=== PATIENT | female | born 1960 | race Caucasian/White ===

== ENCOUNTER 2025-01-31 21:40 | Observation (INO) ==
--- NOTE | 2025-01-31 21:56 | Emergency Department Note ---
HPI - SOB/Dyspnea General Chief Complaint: Upper Respiratory Infection Stated Complaint: TROUBLE BREATHING,CHEST PAIN Time Seen by Provider: 01/31/25 21:46 Source: patient Mode of arrival: walk-in Limitations: no limitations History of Present Illness HPI Narrative: 64-year-old female presents to ER with complaint of 1 week onset of shortness of breath, cough, body aches that has increased in intensity throughout the week. MD elicited complaint: Reports shortness of breath and cough Pertinent past history: Reports COPD and pneumonia Onset (ago): week(s) (1) Context: Reports recent illness and anxiety Timing: Reports constant and progressively worsening Severity: moderate Exacerbating factors: Reports lying flat, exertion, coughing, warm air, humidity, smoke and deep breaths Relieving factors: Reports oxygen, bronchodilators, upright position, medication and cool air Known history of: Reports COPD Associated symptoms: Reports pain with inspiration, cough, orthopnea and chest congestion Treatment prior to arrival: Reports oxygen and bronchodilator Related Data Home oxygen amount: as needed at night Home Medications Medication Instructions Recorded Confirmed atorvastatin 20 mg tablet 20 mg PO DAILY 05/09/24 05/09/24 azelastine 137 mcg (0.1 %) nasal 137 mcg intranasal DAILY 05/09/24 05/09/24 spray buspirone 10 mg tablet 10 mg PO TID 05/09/24 05/09/24 citalopram 40 mg tablet 40 mg PO DAILY 05/09/24 05/09/24 donepezil 23 mg tablet 23 mg PO DAILY 05/09/24 05/09/24 escitalopram oxalate 20 mg tablet 20 mg PO DAILY 05/09/24 05/09/24 fluticasone propionate 115 2 puff inhalation DAILY 05/09/24 05/09/24 mcg-salmeterol 21 mcg/actuation HFA inhaler (Advair HFA) lamotrigine 25 mg tablet 25 mg PO DAILY 05/09/24 05/09/24 lisinopril 5 mg tablet 5 mg PO DAILY 05/09/24 05/09/24 meloxicam 15 mg tablet 15 mg PO DAILY 05/09/24 05/09/24 memantine 10 mg tablet 10 mg PO DAILY 05/09/24 05/09/24 montelukast 10 mg tablet 10 mg PO DAILY 05/09/24 05/09/24 omeprazole 40 mg capsule,delayed 40 mg PO DAILY 05/09/24 05/09/24 release oxcarbazepine 150 mg tablet 150 mg PO DAILY 05/09/24 05/09/24 oxycodone-acetaminophen 10 mg-325 1 tab PO TID 05/09/24 05/09/24 mg tablet potassium chloride 10 mEq 10 meq PO DAILY 05/09/24 05/09/24 tablet,extended release(part/cryst) pregabalin 100 mg capsule 100 mg PO Q12H 05/09/24 05/09/24 quetiapine 100 mg tablet 100 mg PO BID 05/09/24 05/09/24 ranolazine 500 mg tablet,extended 500 mg PO BID 05/09/24 05/09/24 release,12 hr ropinirole 0.25 mg tablet 0.25 mg PO BID 05/09/24 05/09/24 sertraline 50 mg tablet 50 mg PO DAILY 05/09/24 05/09/24 venlafaxine 150 mg 150 mg PO DAILY 05/09/24 05/09/24 capsule,extended release 24 hr Previous Rx's Medication Instructions Recorded ciprofloxacin HCl 500 mg tablet 500 mg PO BID UTI #10 tabs 05/09/24 (Cipro) Allergies Allergy/AdvReac Type Severity Reaction Status Date / Time No Known Drug Allergies Allergy Verified 01/31/25 22:01 Review of Systems Status of ROS 10 or more systems reviewed and unremark able except as noted in history and below Constitutional Reports: fatigue; Denies: fever, chills, change in weight, malaise, night sweats or change in sleep pattern Eyes Denies: change in vision, blurry vision, blind spots, light sensitivity, eye discomfort, eye discharge, dry eyes, increased production of tears, floaters, seeing flashes or decreased night vision Ears, nose, mouth, and throat Reports: nasal congestion; Denies: throat pain, neck pain, throat swelling, difficulty swallowing, hoarseness, mouth pain, swelling of lips/tongue, dry mouth, bad breath, ear pain, ear discharge, change in hearing, tinnitus, vertigo, nasal discharge, nose bleeds or post nasal drip Cardiovascular Reports: swelling of feet/ankles, shortness of breath with exertion and shortness of breath when lying down; Denies: chest pain, palpitations, edema, lightheadedness, leg pain with exertion or bluish discoloration of hands/feet Respiratory Reports: shortness of breath, cough, wheezing and chest congestion; Denies: stridor, pain on inspiration, change in phlegm color or coughing up blood Gastrointestinal Denies: abdominal pain, nausea, vomiting, coffee grounds in vomit, heartburn, diarrhea, constipation, bloating, belching, excessive passing of gas, difficulty swallowing, feeling full early, change in bowel habits, painful bowel movements, rectal pain, rectal swelling, rectal itching, change in stool character, blood in stool, mucus in stool, white/light colored stool or fatty stool Genitourinary Denies: painful urination, urinary frequency, urinary urgency, urinary incontinence, blood in urine, difficulty voiding, decreased urine ouput, pelvic pain, painful menstruation, vaginal bleeding, vaginal discharge, irregular period, change in menstrual flow, absence of menstruation, genital lesion, genital itching, vaginal dryness, vaginal odor, pain during intercourse, difficulty conceiving or change in libido Musculoskeletal Denies: back pain, neck pain, extremity pain, extremity swelling, joint pain, limited range of motion, joint swelling, muscle cramps, muscle weakness or loss of height Integumentary/Breast Denies: rash, itching, redness, skin pain, skin tenderness, skin swelling, sores, new lesion, changing lesion, non-healing lesion, changes in skin color, jaundice, stretch reyes, acne, nail changes, change in hair, breast pain, breast swelling, nipple discharge, breast mass, breast skin changes or change in breast shape Neurological Denies: headache, numbness in extremities, weakness in extremities, lack of coordination, dizziness, vertigo, confusion, behavioral changes, slurred speech, difficulty communicating thoughts, seizure-like activity or involuntary movements Psychiatric Reports: anxiety; Denies: mood swings, panic attacks, change in sleep pattern, hopelessness, loss of interest, irritability, paranoia, memory loss, difficulty concentrating, visual hallucinations, auditory hallucinations, tactile hallucinations, suicidal ideation or homicidal ideation Endocrine Reports: fatigue; Denies: excessive urination, excessive thirst, cold intolerance, excessive sweating, flushing, heat intolerance, deepening of the voice, change in body appearance or change in libido Hematologic/Lymphatic Denies: easy bruising, easy bleeding or enlarged lymph nodes Allergic/Immunologic Reports: wheezing; Denies: hives, throat swelling, tongue swelling, facial swelling, itchy eyes, seasonal allergies or food intolerance [facility] Medical History (Updated 01/31/25 @ 22:33 by Jessica Byrd RN) COPD (chronic obstructive pulmonary disease) Surgical History (Updated 01/31/25 @ 22:34 by Jessica Byrd RN) History of back surgery Hx of cholecystectomy H/O heart artery stent Social History Smoking status: current every day smoker Problems where you live: no known problems Feel stressed/tense/nervous/anxious/difficulty sleeping: not at all Life stressors: other Life stressor details: n/a Exam Constitutional: normal general appearance, distress noted (moderate) and (respiratory), average body habitus, no limitations and alert Vital Signs - 24 hr 01/31/25 21:57 01/31/25 22:24 Temperature 99.2 F Pulse Rate 100 H Respiratory Rate 24 Blood Pressure 117/84 Pulse Oximetry 90 L 85 L Oxygen Delivery Me thod Room Air HENMT: normocephalic, head/scalp atraumatic, hearing grossly normal bilaterally, external ears normal, EACs normal, nasal mucous membranes normal, external nose normal, oral mucous membranes normal, oropharynx normal, dentition normal and gingiva normal Eyes: PERRL, EOMs intact bilaterally, conjunctivae normal, no scleral icterus, no papilledema, normal visual garcía by confrontation, fundi normal bilaterally, alignment normal, periorbital findings normal, visual acuity normal and no nystagmus Neck/C-Spine: visual inspection normal, trachea midline, cervical spine nontender, cervical full ROM noted, supple, no meningeal signs, thyroid normal and no carotid bruits Lymph: no lymphadenopathy noted and no lymphedema noted Chest: inspection of chest normal, inspection of breast(s) abnormal and palpation of breast(s) abnormal Respiratory: breath sounds equal bilaterally, abnormal respiratory effort (pursed lip breathing) and (labored), auscultation abnormal (diminished breath sound) (Left lower lobe), no wheezes, no rales, no retractions and no use of acc essory muscles Patient is a current everyday smoker and has noted pursed lip breathing with diminished breath sounds on the left lower lobe and Rhonchi breath sounds diffusely. Cardiovascular: normal heart rate noted, regular rhythm noted, no gallop, no rub, no murmur, no JVD, no clicks, peripheral pulses 2+ throughout and no additional abnormal heart sounds Gastrointestinal: abdomen normal to inspection, abdomen soft to palpation, nontender to palpation, nondistended, normoactive bowel sounds, no hepatos plenomegaly, no masses, no pulsatile mass, no ascites and normal rectal exam (deferred) Genitourinary: no CVA tenderness, bladder normal to palpation, vaginal abnormality noted (deferred), cervical abnormality noted, bimanual exam abnormal and inguinal lymphadenopathy noted Back/Pelvis: spine normal to inspection, no thoracic spine tenderness, no lumbar spine tenderness, thoracic spine ROM normal, lumbar spine ROM normal and no paraspinal muscle tenderness noted Extremities: normal to inspection, normal to palpation, no tenderness, full ROM, no joint enlargement and no deformity Neurology: application trainer II-XII intact, no movement abnormality noted, no focal motor deficit noted, no sensory deficits noted, gait normal, speech normal, coordination normal, no pronator drift noted, no fasciculations noted and GCS normal Psychiatry: Mental Status Exam documented within this Exam's Psych section mental status grossly normal, oriented x3, thought process normal, cooperative, affect normal, psychomotor activity normal and memory normal Feel stressed/tense/nervous/anxious/difficulty sleeping: not at all Life stressor details: n/a Skin: skin color normal, no rash, no lesions, no ecchymosis noted, no wounds, no lacerations, skin turgor normal, no jaundice, no petechiae, no mottling, nails normal and no alopecia Course Course Hospital Course: 64-year-old female that presented to the ER with complaint of shortness of breath, fever, body aches, general malaise x 1 week has been evaluated by physi aylin exam, CBC, CMP, urinalysis, swabs for COVID and flu, EKG, plain film chest x-ray, and ABG with results as noted in charting. Patient has been found to have hypoxia by ABG, leukocytosis, dehydration, acute kidney injury, pneumonia, and generalized weakness. Patient did show minor improvement with administration of DuoNeb and Pulmicort nebulized breathing treatments. Patient will be admitted to the [facility] floor for observation status to receive IV antibiotics, continued respiratory therapy, and hydration as necessary. Patient expected disposition is to home upon discharge. Vital Signs Vital signs: Vital Signs Temperature 99.2 F 01/31/25 21:57 Pulse Rate 100 H 01/31/25 21:57 Respiratory Rate 24 01/31/25 21:57 Blood Pressure 117/84 01/31/25 21:57 Pulse Oximetry 90 L 01/31/25 21:57 Oxygen Delivery Method Room Air 01/31/25 21:57 Temperature 99.2 F 01/31/25 21:57 Pulse Rate 100 H 01/31/25 21:57 Respiratory Rate 24 01/31/25 21:57 Blood Pressure 117/84 01/31/25 21:57 Pulse Oximetry 85 L 01/31/25 22:24 Oxygen Delivery Method Room Air 01/31/25 21:57 MDM - SOB/Dyspnea MDM Narrative Medical decision making narrative: Medical decision making for this patient involved physical exam, CBC, CMP, urinalysis, ABG, EKG, plain film chest x-ray, swab for flu, COVID, and response to medications. Differential Diagnosis Differential diagnosis: Likely acute exacerbation of chronic obstructive airways disease, community acquired pneumonia, pulmonary embolism and other (COVID, influenza) Lab Data Attestation: I reviewed the patient's lab results. Labs: Lab Results 01/31/25 01/31/25 01/31/25 Range/Units 21:56 21:56 22:15 WBC 15.5 H (4.3-9.3) K/uL RBC 3.3 L (4.00-5.50) M/uL Hgb 9.7 L (12.5-15.8) gm/dL Hct 29.3 L (35.9-46.7) % MCV 87.8 (81.0-93.7) fl MCH 29.0 (27.6-32.2) pg MCHC 33.0 L (33.1-35.3) g/dl RDW 15.4 H (11.4-14.2) % Plt Count 226 (152-353) K/uL MPV 7.0 (6.9-10.8) fl Gran % 91.1 H (47.8-71.3) % Lymph % (Auto) 2.7 L (20.0-43.0) % [place] % (Auto) 5.5 (3.6-9.8) % Eos % (Auto) 0.5 (0.4-2.8) % Baso % (Auto) 0.2 (0.1-0.85) Lymph # (Auto) 0.4 L (1.1-3.1) [place] # (Auto) 0.9 L (1.1-3.1) Eos # (Auto) 0.1 (0.0-0.2) Baso # (Auto) 0.0 (0.0-0.1) Absolute Gran (auto) 14.2 H (2.3-6.0) ABG pH 7.42 (7.35-7.45) ABG pCO2 40 (35-45) mmHg ABG pO2 44 L* 100 (60-100) mmHg ABG PO2/FiO2 Ratio 0.44 ABG HCO3 25.9 (22-26) mmo1/L ABG Total CO2 27.1 mmo1/L ABG O2 Saturation 81 L* (92-100) % ABG Base Excess 1.3 (-2-2) mmo1/L A-a O2 Gradient 56 mmHg Respiratory Index 1.3 H (0-1) FiO2 21 % Sodium 138 (136-145) mmol/L Potassium 3.6 (3.6-5.2) mmol/L Chloride 103.0 (98-107) mmol/L Carbon Dioxide 29 (21-32) mmol/L Anion Gap 6.0 (4-14) mEq/L BUN 25 H (7-18) mg/dL Creatinine 1.6 H (0.6-1.3) mg/dL Estimated GFR 35.8 (>59.9) Glucose 136 H (70-110) mg/dL Calcium 8.2 L (8.5-10.1) mg/dL Magnesium 1.9 (1.8-2.4) mg/dL Total Bilirubin 0.45 (0.0-1.0) mg/dL AST 19 (15-37) U/L ALT 18 L (30-65) U/L Alkaline Phosphatase 102 (50-136) U/L Total Protein 7.1 (6.4-8.2) g/dL Albumin 3.0 L (3.4-5.0) g/dL COVID-19 (NOAH) Not detected (Not Detectd) Influenza Type A Ag Negative (Negative) Influenza Type B Ag Negative (Negative) ABG Data ABG results: See results above Attestation: I have reviewed the pertinent ABG results. Imaging Data Imaging ordered: Chest x-ray My impression: Left lower lobe pneumonia ECG Data Attestation: I have reviewed the pertinent ECG results. Interpretation: Sinus rhythm rate 98 Normal P axis RR 612 [place] 116 P axis 68 QRS 66 T 53 Smoking Cessation Time spent discussing smoking cessation with patient: 3 to 10 minutes Patient Acknowledges Need for Cessation: Yes Discharge Plan Discharge Patient Disposition: Admitted As Observation Condition: Stable Clinical Impression: Pneumonia, Upper respiratory infection, Leukocytosis, Dehydration, Acute kidney injury Time of Disposition: 23:15
[2025-01-31] MEDS: IPRATROPIUM/ALBUTEROL SULFATE 3 ML AMPUL.NEB INH ONE (22:24)
[2025-01-31] MEDS: BUDESONIDE 0.5 MG/2 ML AMPUL.NEB INH ONE (22:24)
[2025-01-31 22:30] LABS: PCO2 ABG 40 mmHg (35-45); pH ABG 7.42 (7.35-7.45)
[2025-01-31 22:31] LABS: Base Excess ABG 1.3 mmo1/L (-2-2); PO2 ABG 44 mmHg (60-100)
[2025-01-31 22:32] LABS: Oxygen Saturation ABG 81 % (92-100)
[2025-01-31 22:35] LABS: Basophils%(Percent) Auto 0.2 (0.1-0.85); Eosinophils#(Absolute)Auto 0.1 (0.0-0.2); Eosinophils%(Percent) Auto 0.5 % (0.4-2.8); Granulocytes % - Auto 91.1 % (47.8-71.3); Granulocytes#(Absolute)- Auto 14.2 (2.3-6.0); Hematocrit 29.3 % (35.9-46.7); Mean Corpuscular Volume 87.8 fl (81.0-93.7); Monocytes #(Absolute)- Auto 0.9 (1.1-3.1); Monocytes %(Percent)- Auto 5.5 % (3.6-9.8); Platelet Count 226 K/uL (152-353); White Blood Count 15.5 K/uL (4.3-9.3)
[2025-01-31 22:51] LABS: Potassium 3.6 mmol/L (3.6-5.2)
[2025-02-01] MEDS ORDERED: ONDANSETRON HCL/PF 4 MG/2 ML VIAL INJ PRN (00:42)
[2025-02-01] MEDS ORDERED: KETOROLAC 30 MG/ML INJ VIAL IVP PRN (00:42)
[2025-02-01] MEDS ORDERED: MORPHINE SULFATE 2 MG/ML CARTRIDGE IV PRN (00:42)
[2025-02-01] MEDS ORDERED: bisacodyL 10 MG SUPP.RECT PR PRN (00:42)
[2025-02-01] MEDS ORDERED: MAGNESIUM, ALUMINUM HYDROXIDE 30 ML ORAL.SUSP PO PRN (00:42)
[2025-02-01] MEDS ORDERED: AZITHROMYCIN 500 MG VIAL ONE (00:52)
[2025-02-01] MEDS ORDERED: 0.9 % SODIUM CHLORIDE 250 ML IV ONE (00:52)
[2025-02-01] MEDS: AZITHROMYCIN 500 MG 500 MG in 0.9 % SODIUM CHLORIDE 250 ML IV ONE (00:53)
[2025-02-01] MEDS: IPRATROPIUM/ALBUTEROL SULFATE 3 ML AMPUL.NEB INH SCH (01:20)
[2025-02-01] MEDS: 0.9 % SODIUM CHLORIDE 1000 ML 1,000 ML IV SCH (02:44)
[2025-02-01] MEDS: CEFTRIAXONE SODIUM 1 GM in 0.9 % SODIUM CHLORIDE MB+ 50 ML IV SCH ×2 (02:44→12:52)
[2025-02-01 05:28] LABS: Urine Appearance CLEAR (CLEAR); Urine Blood NEGATIVE (NEG - TRACE); Urine Color YELLOW (STRAW/YELL.); Urine Urobilinogen Normal (NORMAL)
[2025-02-01 05:35] LABS: Basophils%(Percent) Auto 0.2 (0.1-0.85); Granulocytes % - Auto 96.5 % (47.8-71.3); Granulocytes#(Absolute)- Auto 14.4 (2.3-6.0); Hematocrit 26.3 % (35.9-46.7); Mean Corpuscular Volume 87.6 fl (81.0-93.7); Monocytes #(Absolute)- Auto 0.3 (1.1-3.1); Monocytes %(Percent)- Auto 2.3 % (3.6-9.8); Platelet Count 198 K/uL (152-353)
[2025-02-01 05:52] LABS: Potassium 3.7 mmol/L (3.6-5.2)
[2025-02-01] MEDS: BUDESONIDE 0.5 MG/2 ML AMPUL.NEB INH SCH (08:10)
[2025-02-01] MEDS: PANTOPRAZOLE SODIUM 40 MG TABLET.DR PO SCH (09:47)
--- NOTE | 2025-02-01 11:06 | History & Physical Report ---
H&P: HPI History of Present Illness Chief complaint: PNEUMONIA,LEUKOCYTOSIS,ACUTE KIDNEY INJURY,DEHYDRA Narrative: Patient admitted to med/surg floor for observation to receive IV antibiotics, continued respiratory therapy, and hydration as necessary. Patient has a chief complaint of shortness of breath, fever, body aches, and general malaise for one week. Lab work and imaging reflect the following: Hypoxia, Leukocytosis, Dehydration, Acute Kidney Injury, Pneumonia, and generalized weakness. Review of Systems Status of ROS 10 or more systems reviewed and unremark able except as noted in history and below and unobtainable due to mental status Constitutional Reports: fatigue; Denies: fever, chills, change in weight, malaise, night sweats or change in sleep pattern Eyes Denies: change in vision, blurry vision, blind spots, light sensitivity, eye discomfort, eye discharge, dry eyes, increased production of tears, floaters, seeing flashes or decreased night vision Ears, nose, mouth, and throat Reports: nasal congestion; Denies: throat pain, neck pain, throat swelling, difficulty swallowing, hoarseness, mouth pain, swelling of lips/tongue, dry mouth, bad breath, ear pain, ear discharge, change in hearing, tinnitus, vertigo, nasal discharge, nose bleeds or post nasal drip Cardiovascular Reports: swelling of feet/ankles, shortness of breath with exertion and shortness of breath when lying down; Denies: chest pain, palpitations, edema, lightheadedness, leg pain with exertion or bluish discoloration of hands/feet Respiratory Reports: shortness of breath, cough, wheezing and chest congestion; Denies: stridor, pain on inspiration, change in phlegm color or coughing up bloo d Gastrointestinal Denies: abdominal pain, nausea, vomiting, coffee grounds in vomit, heartburn, diarrhea, constipation, bloating, belching, excessive passing of gas, difficulty swallowing, feeling full early, change in bowel habits, painful bowel movements, rectal pain, rectal swelling, rectal itching, change in stool character, blood in stool, mucus in stool, white/light colored stool or fatty stool Genitourinary Denies: painful urination, urinary frequency, urinary urgency, urinary incontinence, blood in urine, difficulty voiding, decreased urine ouput, pelvic pain, painful menstruation, vaginal bleeding, vaginal discharge, irregular period, change in menstrual flow, absence of menstruation, genital lesion, genital itching, vaginal dryness, vaginal odor, pain during intercourse, difficulty conceiving or change in libido Musculoskeletal Denies: back pain, neck pain, extremity pain, extremity swelli ng, joint pain, limited range of motion, joint swelling, muscle cramps, muscle weakness or loss of height Integumentary/Breast Denies: rash, itching, redness, skin pain, skin tenderness, skin swelling, sores, new lesion, changing lesion, non-healing lesion, changes in skin color, jaundice, stretch reyes, acne, nail changes, change in hair, breast pain, breast swelling, nipple discharge, breast mass, breast skin changes or change in breast shape Neurological Denies: headache, numbness in extremities, weakness in extremities, lack of coordination, dizziness, vertigo, confusion, behavioral changes, slurred speech, difficulty communicating thoughts, seizure-like activity or involuntary movements Psychiatric Reports: anxiety; Denies: mood swings, panic attacks, change in sleep pattern, hopelessness, loss of interest, irritability, paranoia, memory loss, difficulty concentrating, visual hallucinations, auditory hallucinations, tactile hallucinations, suicidal ideation or homicidal ideation Endocrine Reports: fatigue; Denies: excessive urination, excessive thirst, cold intolerance, excessive sweating, flushing, heat intolerance, deepening of the voice, change in body appearance or change in libido Hematologic/Lymphatic Denies: easy bruising, easy bleeding or enlarged lymph nodes Allergic/Immunologic Reports: wheezing; Denies: hives, throat swelling, tongue swelling, facial swelling, itchy eyes, seasonal allergies or food intolerance [facility] Medical History (Updated 02/01/25 @ 16:15 by Lexi Deleon DO) Cocaine abuse COPD (chronic obstructive pulmonary disease) Surgical History History of back surgery Hx of cholecystectomy H/O heart artery stent Social History Smoking status: current every day smoker Problems where you live: no known problems Highest level of school completed/degree received: high school Feel stressed/tense/nervous/anxious/difficulty sleeping: not at all Life stressors: other Life stressor details: n/a Meds Home Medications and Allergies Home Medications Medication Instructions Recorded Confirmed Type atorvastatin 20 mg tablet 20 mg PO BEDTIME 05/09/24 02/01/25 History donepezil 23 mg tablet 23 mg PO BEDTIME 05/09/24 02/01/25 History fluticasone propionate 115 2 puff inhalation DAILY 05/09/24 02/01/25 History mcg-salmeterol 21 mcg/actuation HFA inhaler (Advair HFA) lamotrigine 25 mg tablet 25 mg PO DAILY 05/09/24 02/01/25 History meloxicam 15 mg tablet 15 mg PO DAILY 05/09/24 02/01/25 History montelukast 10 mg tablet 10 mg PO DAILY 05/09/24 02/01/25 History omeprazole 40 mg capsule,delayed 40 mg PO DAILY 05/09/24 02/01/25 History release oxycodone-acetaminophen 10 mg-325 1 tab PO TID 05/09/24 02/01/25 History mg tablet potassium chloride 10 mEq 10 meq PO DAILY 05/09/24 02/01/25 History tablet,extended release(part/cryst) ranolazine 500 mg tablet,extended 500 mg PO BID 05/09/24 02/01/25 History release,12 hr ropinirole 0.25 mg tablet 0.25 mg PO BID 05/09/24 02/01/25 History venlafaxine 150 mg 150 mg PO DAILY 05/09/24 02/01/25 History capsule,extended release 24 hr calcium 600 mg (as 1 tab PO DAILY 02/01/25 02/01/25 History carbonate)-vitamin D3 10 mcg (400 unit) tablet doxepin 75 mg capsule 75 mg PO BEDTIME 02/01/25 02/01/25 History lisinopril 10 mg tablet 10 mg PO DAILY 02/01/25 02/01/25 History magnesium oxide 400 mg PO BID 02/01/25 02/01/25 History pregabalin 150 mg capsule 150 mg PO BID 02/01/25 02/01/25 History quetiapine 400 mg tablet 400 mg PO DAILY 02/01/25 02/01/25 History Allergies Allergy/AdvReac Type Severity Reaction Status Date / Time No Known Drug Allergies Allergy Verified 01/31/25 22:01 Exam Exam: Patient standing up at bedside rearranging items on bed. Constitutional: abnormal general appearance (disheveled), distress noted (mild) and (respiratory), abnormal body habitus (thin), limitations noted (behavioral limitations) and alert (hyperactive all over the room) Vital Signs - 24 hr 01/31/25 21:57 01/31/25 22:00 01/31/25 22:24 Temperature 99.2 F Pulse Rate 100 H Pulse Rate [Right Radial] Respiratory Rate 24 Blood Pressure 117/84 Blood Pressure [Le ft Arm] Pulse Oximetry 90 L 98 85 L Oxygen Delivery Me thod Room Air Nasal Cannula Oxygen Flow Rate 2 01/31/25 22:30 01/31/25 23:30 02/01/25 00:30 Temperature Pulse Rate 98 H 96 H 88 Pulse Rate [Right Radial] Respiratory Rate 20 21 19 Blood Pressure 114/52 105/65 107/60 Blood Pressure [Le ft Arm] Pulse Oximetry 98 98 98 Oxygen Delivery Me thod Nasal Cannula Nasal Cannula Nasal Cannula Oxygen Flow Rate 2 2 2 02/01/25 00:43 02/01/25 01:06 02/01/25 01:20 Temperature 98.4 F Pulse Rate Pulse Rate [Right Radial] 94 H Respiratory Rate 16 Blood Pressure Blood Pressure [Le ft Arm] 123/57 Pulse Oximetry 93 L 90 L Oxygen Delivery Me thod Nasal Cannula Nasal Cannula Oxygen Flow Rate 2 2 02/01/25 01:30 02/01/25 02:15 02/01/25 02:15 Temperature 99.3 F Pulse Rate 93 H 95 H 95 H Pulse Rate [Right Radial] Respiratory Rate 18 19 19 Blood Pressure 99/48 98/52 98/52 Blood Pressure [Le ft Arm] Pulse Oximetry 99 100 100 Oxygen Delivery Me thod Nasal Cannula Nasal Cannula Oxygen Flow Rate 2 2 02/01/25 03:30 02/01/25 08:00 02/01/25 08:37 Temperature 98.4 F 98.2 F Pulse Rate Pulse Rate [Right Radial] 94 H 58 L Respiratory Rate 16 19 Blood Pressure Blood Pressure [Le ft Arm] 123/57 100/52 Pulse Oximetry 94 L 100 94 L Oxygen Delivery Me thod Nasal Cannula Nasal Cannula Oxygen Flow Rate 2 HENMT: normocephalic, head/scalp atraumatic, hearing grossly normal bilaterally, external ears normal, EACs normal, nasal mucous membranes normal, external nose normal, oral mucous membranes normal, oropharynx normal, dentition normal and gingiva normal Eyes: PERRL, EOMs intact bilaterally, conjunctivae normal, no scleral icterus, no papilledema, normal visual garcía by confrontation, fundi normal bilaterally, alignment normal, periorbital findings normal, visual acuity normal and no nystagmus Neck/C-Spine: visual inspection normal, trachea midline, cervical spine nontender, cervical full ROM noted, supple, no meningeal signs, thyroid normal and no carotid bruits Lymph: no lymphadenopathy noted and no lymphedema noted Chest: inspection of chest normal, palpation of chest normal, inspection of breast(s) abnormal and palpation of breast(s) abnormal Respiratory: breath sounds equal bilaterally, abnormal respiratory effort (labored), auscultation abnormal (bronchial breath sounds) (bilateral), wheezing noted (anterior and posterior) (scattered wheezes), no rales, no retractions, no use of accessory muscles and chest percussion normal Patient is a current everyday smoker, has noted diminished breath sounds, Rhonchi breath sounds diffusely. Cardiovascular: normal heart rate noted, regular rhythm noted, no gallop, no rub, no murmur, no JVD, no clicks, peripheral pulses 2+ throughout, no bruits noted and no additional abnormal heart sounds Gastrointestinal: abdomen normal to inspection, abdomen soft to palpation, nontender to palpation, nontender to percussion, nondistended, normoactive bowel sounds, no hepatosplenomegaly, no masses, no pulsatile mass, no ascites, no hernia and normal rectal exam (deferred) Genitourinary: no CVA tenderness, bladder normal to palpation, external appearance abnormal, vaginal abnormality noted (deferred), cervical abnormality noted, bimanual exam abnormal and inguinal lymphadenopathy noted Back/Pelvis: spine normal to inspection, no thoracic spine tenderness, no lumbar spine tenderness, thoracic spine ROM normal, lumbar spine ROM normal, no paraspinal muscle tenderness noted and straight leg raise negative bilaterally Extremities: normal to inspection, normal to palpation, no tenderness, full ROM, no joint enlargement and no deformity 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, no movement abnormality noted, no focal motor deficit noted, sensory deficit noted, deep tendon reflexes 2+ bilaterally, gait abnormality noted, speech normal, coordination normal, no pronator drift noted, no fasciculations noted and GCS normal Psychiatry: Mental Status Exam documented within this Exam's Psych section mental status grossly normal, oriented x3, thought process normal, cooperative, affect abnormality noted (anxious), psychomotor abnormality noted (hyperactive) and memory normal Feel stressed/tense/nervous/anxious/difficulty sleeping: not at all Skin: skin color normal, no rash, lesion(s) noted (scab over sores on face and left neck and forearms), no ecchymosis noted, wound(s) noted Reports (superficial) (Neck & Extremities), no lacerations, skin turgor abnormal (dry a nd ashy), no jaundice, no petechiae, no mottling, nails abnormality noted (bites finfer nails) and no alopecia Assessment and Plan Assessment and Plan (1) Pneumonia: Qualifiers: Laterality: unspecified laterality Lung location: lower lobe of lung Pneumonia type: due to unspecified organism Qualified Code(s): J18.9 - Pneumonia, unspecified organism Code(s): J18.9 - Pneumonia, unspecified organism (2) Leukocytosis: Qualifiers: Leukocytosis type: unspecified Qualified Code(s): D72.829 - Elevated white blood cell count, unspecified Code(s): D72.829 - Elevated white blood cell count, unspecified (3) YADIRA (acute kidney injury): Code(s): N17.9 - Acute kidney failure, unspecified (4) Dehydration: Code(s): E86.0 - Dehydration (5) Muscle weakness (generalized): Code(s): M62.81 - Muscle weakness (generalized) (6) Dyspnea: Qualifiers: Dyspnea type: shortness of breath Qualified Code(s): R06.02 - Shortness of breath Code(s): R06.00 - Dyspnea, unspecified (7) Cough: Qualifiers: Cough type: acute Qualified Code(s): R05.1 - Acute cough Code(s): R05.9 - Cough, unspecified (8) Body aches: Code(s): R52 - Pain, unspecified (9) Hypoxia: Code(s): R09.02 - Hypoxemia (10) Cocaine abuse: Code(s): F14.10 - Cocaine abuse, uncomplicated Plan Sodium Chloride 1,000 mls @ 100 mls/hr IV CONT Albuterol Sulfate 3 ml INH RQ6 Budesonide 1 mg INH RBID Dexamethasone Sodium Phosphate 4 mg IVP BID Azithromycin 500 mg in Sodium Chloride 250 mls @ 250 mls/hr IV 2100 Ceftriaxone Sodium 1 gm in Sodium Chloride 50 mls @ 100 mls/hr IV Q12H Pantoprazole Sodium 40 mg PO DAILY Enoxaparin Sodium 30 mg SUBQ Q24H Magnesium Hydroxide 30 ml PO DAILY PRN Bisacodyl 10 mg TX DAILY PRN Ketorolac Tromethamine 15 mg IVP Q6H PRN Morphine Sulfate 2 mg IV Q4H PRN Ondansetron Hcl 4 mg INJ Q6H PRN Results Labs Labs: CBC 01/31/25 02/01/25 Range/Units 22:15 05:30 WBC 15.5 H 15.0 H (4.3-9.3) K/uL RBC 3.3 L 3.0 L (4.00-5.50) M/uL Hgb 9.7 L 8.7 L (12.5-15.8) gm/dL Hct 29.3 L 26.3 L (35.9-46.7) % Plt Count 226 198 (152-353) K/uL Gran % 91.1 H 96.5 H (47.8-71.3) % Lymph % (Auto) 2.7 L 1.0 L (20.0-43.0) % Christian % (Auto) 5.5 2.3 L (3.6-9.8) % Eos % (Auto) 0.5 0.0 L (0.4-2.8) % Baso % (Auto) 0.2 0.2 (0.1-0.85) Lymph # (Auto) 0.4 L 0.1 L (1.1-3.1) Christian # (Auto) 0.9 L 0.3 L (1.1-3.1) Eos # (Auto) 0.1 0.0 (0.0-0.2) Baso # (Auto) 0.0 0.0 (0.0-0.1) Absolute Gran (auto) 14.2 H 14.4 H (2.3-6.0) CMP 01/31/25 02/01/25 22:15 05:30 Sodium 138 141 Potassium 3.6 3.7 Chloride 103.0 103.0 Carbon Dioxide 29 28 BUN 25 H 24 H Creatinine 1.6 H 1.6 H Glucose 136 H 254 H Calcium 8.2 L 7.6 L Liver Function 01/31/25 02/01/25 Range/Units 22:15 05:30 Total Bilirubin 0.45 0.22 (0.0-1.0) mg/dL AST 19 13 L (15-37) U/L ALT 18 L 8 L (30-65) U/L Alkaline Phosphatase 102 91 (50-136) U/L Albumin 3.0 L 2.5 L (3.4-5.0) g/dL Urine 01/31/25 00:40 Urine Color Yellow Urine Appearance Clear Ur Specific [place] 1.010 Urine Protein Negative Urine Glucose (UA) Normal ABG ABG results: 01/31/25 21:56 ABG pH 7.42 ABG pCO2 40 ABG pO2 100 ABG HCO3 25.9 ABG Total CO2 27.1 ABG O2 Saturation 81 L* ABG Base Excess 1.3 Pulse Oximetry Attestation: I have reviewed the pertinent pulse oximetry results. Imaging Imaging ordered: Chest x-ray Radiologist's impression: XR CHEST 1V Date of Service: 01/31/25 HISTORY: dyspneadyspnea; COMPARISON: Prior study or studies were utilized for comparison during interpretation with the most relevant dated 10/30/2023 TECHNIQUE: XR CHEST 1V FINDINGS: Chest: Lines and tubes: None Mediastinum: Cardiac and mediastinal shadow is within normal limits for size and contour. Pulmonary vessels: No pulmonary vascular congestion. Lung garcía: No suspicious airspace opacity. Pleura: No effusion. No pneumothorax. Bones and soft tissues: No acute osseous or soft tissue abnormality. IMPRESSION: 1. No acute cardiopulmonary abnormality XR CHEST 2V Date of Service: 02/01/25 HISTORY: wheezing, cough; COMPARISON: January 31, 2025 FINDINGS: The trachea is midline. The cardiac silhouette is normal in size. Mild emphysema is present. The lungs are clear without focal infiltrate or effusion. The bony thorax is unremarkable. IMPRESSION: No acute cardiopulmonary disease.
[2025-02-01] MEDS: ENOXAPARIN SODIUM 30 MG/0.3 ML SYRINGE SUBQ SCH (12:02)
[2025-02-01 13:17] LABS: Amphetamine Screen Urine NEG. (NEGATIVE); Cannabinoid Screen Urine NEG. (NEGATIVE); Cocaine Screen Urine POS. (NEGATIVE); Methadone Screen Urine NEG. (NEGATIVE); Opiate Screen Urine NEG. (NEGATIVE)
[2025-02-01] MEDS: VENLAFAXINE HCL 150 MG CAP.ER PO SCH (17:18)
[2025-02-01] MEDS: QUETIAPINE FUMARATE 100 MG TABLET PO SCH (17:18)
[2025-02-01] MEDS: lamoTRIgine 25 MG TABLET PO SCH (17:18)
[2025-02-01] MEDS: PREGABALIN 75 MG CAPSULE PO SCH (20:39)
[2025-02-01] MEDS: RANOLAZINE 500 MG TAB.ER.12H PO SCH (20:39)
[2025-02-01] MEDS: ATORVASTATIN CALCIUM 10 MG TABLET PO SCH (20:39)
[2025-02-01] MEDS: AZITHROMYCIN 500 MG 500 MG in 0.9 % SODIUM CHLORIDE 250 ML IV SCH (20:48)
[2025-02-01] MEDS: guaiFENesin 100 MG/5 ML LIQUID PO PRN (21:17)
[2025-02-01] MEDS: DONEPEZIL HCL 5 MG TABLET PO SCH (22:50)
[2025-02-02 07:09] LABS: Granulocytes#(Absolute)- Auto 13.3 (2.3-6.0); Hematocrit 27.3 % (35.9-46.7); Mean Corpuscular Volume 88.6 fl (81.0-93.7); Monocytes #(Absolute)- Auto 0.5 (1.1-3.1); Monocytes %(Percent)- Auto 3.2 % (3.6-9.8); Platelet Count 203 K/uL (152-353); White Blood Count 14.3 K/uL (4.3-9.3)
[2025-02-02 07:27] LABS: Potassium 4.7 mmol/L (3.6-5.2)
[2025-02-02 08:16] VITALS: BP 113/74; PULSE 62; RESP 19; TEMP 97.8
[2025-02-02] MEDS ORDERED: ALBUMIN HUMAN 25% 100 ML IV SCH (09:30)
[2025-02-02] MEDS: MONTELUKAST SODIUM 10 MG TABLET PO SCH (09:34)
--- NOTE | 2025-02-02 10:39 | Discharge Summary ---
DS: Providers Provider Date of admission: 02/01/25 00:43 Primary care physician: Scottie Birdges Admitting clinician: Lopez Whitt Attending physician on admission: Lexi Deleon Attending physician on discharge: Lexi Deleon Discharging clinician: Lexi Deleon Anticipated date of discharge: 02/02/25 DS: Diagnosis Discharge Diagnosis (1) Pneumonia: Qualifiers: Laterality: unspecified laterality Lung location: lower lobe of lung Pneumonia type: due to unspecified organism Qualified Code(s): J18.9 - Pneum onia, unspecified organism (2) COPD exacerbation: (3) Leukocytosis: Qualifiers: Leukocytosis type: unspecified Qualified Code(s): D72.829 - Elevated white blood cell count, unspecified (4) Cocaine abuse: (5) YADIRA (acute kidney injury): (6) Dehydration: (7) Muscle weakness (generalized): (8) Dyspnea: Qualifiers: Dyspnea type: shortness of breath Qualified Code(s): R06.02 - Shortness of breath (9) Cough: Qualifiers: Cough type: acute Qualified Code(s): R05.1 - Acute cough (10) Body aches: (11) Hypoxia: Plan Sodium Chloride 1,000 mls @ 100 mls/hr IV CONT Albumin 100 100 mls @ 60 mls/hr IV ONCE Albuterol Sulfate 3 ml INH RQ6 Budesonide 1 mg INH RBID Dexamethasone Sodium Phosphate 4 mg IVP BID Azithromycin 500 mg in Sodium Chloride 250 mls @ 250 mls/hr IV 2100 Ceftriaxone Sodium 1 gm in Sodium Chloride 50 mls @ 100 mls/hr IV Q12H Pantoprazole Sodium 40 mg PO DAILY Enoxaparin Sodium 30 mg SUBQ Q24H Atorvastatin Calcium 20 mg PO BEDTIME Donepezil Hcl 23 mg PO BEDTIME Lamotrigine 25 mg PO DAILY Montelukast Sodium 10 mg PO DAILY Pregabalin 150 mg PO BID Quetiapine Fumarate 400 mg PO DAILY Ranolazine 500 mg PO BID Venlafaxine Hcl 150 mg PO DAILY Magnesium Hydroxide 30 PO DAILY PRN Bisacodyl 10 mg NJ DAILY PRN Ketorolac Tromethamine 15 mg IBP Q6H PRN Morphine Sulfate 2 mg IV Q4H PRN Ondansetron Hcl 4 mg INJ Q6H PRN Guaifenesin 200 mg PO Q6H PRN Offered Drug Rehab - patient declined Discharge home for self care. DS: Summary Hospital Course Hospital Course: 64-year-old female that presented to the ER with complaint of shortness of breath, fever, body aches, general malaise x 1 week has been evaluated by physical exam, CBC, CMP, urinalysis, swabs for COVID and flu, EKG, plain film chest x-ray, and ABG with results as noted in charting. Patient has been found to have hypoxia by ABG, leukocytosis, dehydration, acute kidney injury, pneumonia, and generalized weakness. Patient did show minor improvement with administration of DuoNeb and Pulmicort nebulized breathing treatments. [facility] status to receive IV antibiotics, continued respiratory therapy, and hydration as necessary. Patient showed significant improvement in breath sounds. She is ready to discharge home for self care. Drug rehabilitation was offered due to cocaine positive drug screen. Patient declined at this time, stating she can stop using on her own and wants to. Patient is to follow up with PCP in 5-7 days of discharge. Status at Discharge Overall status at discharge: patient is progressing back to baseline Time Spent with Patient Time attestation: Total time spent providing and/or coordinating discharge services: Exam Exam: Patient in low ly's position upon entering room for exam. Constitutional: abnormal general appearance (disheveled), no apparent distress, abnormal body habitus (thin), limitations noted (behavioral limitations) and alert Vital Signs - 24 hr 02/01/25 12:00 02/01/25 13:27 02/01/25 16:00 Temperature 97.8 F 97.7 F Pulse Rate [Right Radial] 64 60 Respiratory Rate 19 19 Blood Pressure Blood Pressure [Le ft Arm] 103/48 102/56 Pulse Oximetry 94 L Oxygen Delivery Me thod Nasal Cannula Room Air Nasal Can nula Oxygen Flow Rate 2 2 Fraction of Inspir ed Oxygen 02/01/25 19:50 02/01/25 19:53 02/01/25 20:32 Temperature 97.7 F Pulse Rate [Right Radial] 67 Respiratory Rate 20 Blood Pressure Blood Pressure [Le ft Arm] 106/60 Pulse Oximetry 99 99 95 Oxygen Delivery Me thod Nasal Cannula Nasal Cannula Oxygen Flow Rate 3 Fraction of Inspir ed Oxygen 32 02/01/25 20:39 02/01/25 23:45 02/02/25 03:46 Temperature 98.2 F 97.5 F L Pulse Rate [Right Radial] 78 55 L Respiratory Rate 19 16 Blood Pressure 106/60 Blood Pressure [Le ft Arm] 99/57 106/65 Pulse Oximetry 98 97 Oxygen Delivery Me thod Nasal Cannula Nasal Cannula Oxygen Flow Rate Fraction of Inspir ed Oxygen 02/02/25 07:39 02/02/25 08:00 Temperature 97.8 F Pulse Rate [Right Radial] 62 Respiratory Rate 19 Blood Pressure Blood Pressure [Le ft Arm] 113/74 Pulse Oximetry 98 99 Oxygen Delivery Me thod Nasal Cannula Oxygen Flow Rate 2 Fraction of Inspir ed Oxygen HENMT: normocephalic, head/scalp atraumatic, hearing grossly normal bilaterally, external ears normal, EACs normal, nasal mucous membranes normal, external nose normal, oral mucous membranes normal, oropharynx normal, dentition normal and gingiva normal Eyes: PERRL, EOMs intact bilaterally, conjunctivae normal, no scleral icterus, no papilledema, normal visual garcía by confrontation, fundi normal bilaterally, alignment normal, periorbital findings normal, visual acuity normal and no nystagmus Neck/C-Spine: visual inspection normal, trachea midline, cervical spine nontender, cervical full ROM noted, supple, no meningeal signs, thyroid normal and no carotid bruits Lymph: no lymphadenopathy noted and no lymphedema noted Chest: inspection of chest normal, palpation of chest normal, inspection of breast(s) abnormal and palpation of breast(s) abnormal Respiratory: breath sounds equal bilaterally, normal respiratory effort, aus cultation abnormal (bronchial breath sounds) (bilateral - improved), wheezing noted (anterior and posterior - improved) (scattered wheezes), no rales, no retractions, no use of accessory muscles and chest percussion normal Patient is a current everyday smoker Cardiovascular: normal heart rate noted, regular rhythm noted, no gallop, no rub, no murmur, no JVD, no clicks, peripheral pulses 2+ throughout, no bruits noted and no additional abnormal heart sounds Gastrointestinal: abdomen normal to inspection, abdomen soft to palpation, nontender to palpation, nontender to percussion, nondistended, normoactive bowel sounds, no hepatosplenomegaly, no masses, no pulsatile mass, no ascites and no hernia Genitourinary: no CVA tenderness and bladder normal to palpation Back/Pelvis: spine normal to inspection, no thoracic spine tenderness, no lumbar spine tenderness, thoracic spine ROM normal, lumbar spine ROM normal, no paraspinal muscle tenderness noted and straight leg raise negative bilaterally Extremities: normal to inspection, normal to palpation, no tenderness, full ROM, no joint enlargement and no deformity Neurology: medical massage therapist II-XII intact, no movement abnormality noted, no focal motor deficit noted, sensory deficit noted, deep tendon reflexes 2+ bilaterally, gait abnormality noted, speech normal, coordination normal, no pronator drift noted, no fasciculations noted and GCS normal Psychiatry: Mental Status Exam documented within this Exam's Psych section mental status grossly normal, oriented x3, thought process normal, cooperative, affect abnormality noted (anxious), psychomotor abnormality noted (hyperactive) and memory normal Skin: skin color normal, no rash, lesion(s) noted (scab over sores on face and left neck and forearms), no ecchymosis noted, wound(s) noted Reports (superficial) (Neck & Extremities), no lacerations, skin turgor abnormal (dry and ashy), no jaundice, no petechiae, no mottling, nails abnormality noted (bites finger nails) and no alopecia DS: Data Data Completed and Pending Labs on day of discharge: Labs from last 24 hours 02/02/25 02/01/25 06:42 00:40 WBC 14.3 H RBC 3.1 L Hgb 9.2 L Hct 27.3 L MCV 88.6 MCH 29.9 MCHC 33.7 RDW 15.5 H Plt Count 203 MPV 8.5 Gran % 93.0 H Lymph % (Auto) 3.8 L [place] % (Auto) 3.2 L Eos % (Auto) 0.0 L Baso % (Auto) 0.0 L Lymph # (Auto) 0.5 L [place] # (Auto) 0.5 L Eos # (Auto) 0.0 Baso # (Auto) 0.0 Absolute Gran (auto) 13.3 H Sodium 143 Potassium 4.7 Chloride 112.0 H Carbon Dioxide 23 Anion Gap 8.0 BUN 26 H Creatinine 1.1 Estimated GFR 56.1 Glucose 167 H Calcium 8.1 L Phosphorus 3.1 Magnesium 2.3 Total Bilirubin 0.18 AST 20 ALT 14 L Alkaline Phosphatase 85 Total Protein 6.2 L Albumin 2.2 L Urine Opiates Screen Neg. Urine Methadone Screen Neg. Barbiturate Screen Neg. Ur Phencyclidine Scrn Neg. Amphetamines Screen Neg. U Benzodiazepines Scrn Neg. Urine Cocaine Screen Pos. U Marijuana (THC) Screen Neg. Preliminary micro results at discharge 02/01/25 01:00 Blood Culture - Preliminary Blood - Venous Draw (Peripheral) 02/01/25 00:40 Blood Culture - Preliminary Blood - Venous Draw (Peripheral) Imaging Chest x-ray: Radiologist's impression: XR CHEST 1V Date of Service: 01/31/25 HISTORY: dyspneadyspnea; COMPARISON: Prior study or studies were utilized for comparison during interpretation with the most relevant dated 10/30/2023 TECHNIQUE: XR CHEST 1V FINDINGS: Chest: Lines and tubes: None Mediastinum: Cardiac and mediastinal shadow is within normal limits for size and contour. Pulmonary vessels: No pulmonary vascular congestion. Lung garcía: No suspicious airspace opacity. Pleura: No effusion. No pneumothorax. Bones and soft tissues: No acute osseous or soft tissue abnormality. IMPRESSION: 1. No acute cardiopulmonary abnormality XR CHEST 2V Date of Service: 02/01/25 HISTORY: wheezing, cough; COMPARISON: January 31, 2025 FINDINGS: The trachea is midline. The cardiac silhouette is normal in size. Mild emphysema is present. The lungs are clear without focal infiltrate or effusion. The bony thorax is unremarkable. IMPRESSION: No acute cardiopulmonary disease. Discharge Plan Discharge Disposition: Home, Self-Care Condition: Improved Discharge Medications: New methylprednisolone [Medrol (Ephraim)] 4 mg tablets,dose pack See Rx Instructions .ROUTE .COMPLEX Qty: 21 0RF Rx Instructions: for 6 days azithromycin [Zithromax Z-Ephraim] 250 mg tablet See Rx Instructions .ROUTE .COMPLEX Qty: 6 0RF Rx Instructions: For 250 mg dose pack: take 500 mg today (day 1), then 250 mg for 4 days (days 2-5) Continued atorvastatin 20 mg tablet 20 mg PO BEDTIME donepezil 23 mg tablet 23 mg PO BEDTIME fluticasone propion-salmeterol [Advair HFA] 115-21 mcg/actuation HFA aerosol inhaler 2 puff INHALATION DAILY Patient Comments: PATIENT STATES SHE STILL HAS THE INHALER AND USES IT lamotrigine 25 mg tablet 25 mg PO DAILY meloxicam 15 mg tablet 15 mg PO DAILY montelukast 10 mg tablet 10 mg PO DAILY omeprazole 40 mg capsule,delayed release(DR/EC) 40 mg PO DAILY oxycodone-acetaminophen 10-325 mg tablet 1 tab PO TID potassium chloride 10 mEq tablet,ER particles/crystals 10 meq PO DAILY venlafaxine 150 mg capsule,extended release 24hr 150 mg PO DAILY ropinirole 0.25 mg tablet 0.25 mg PO BID ranolazine 500 mg tablet extended release 12 hr 500 mg PO BID doxepin 75 mg capsule 75 mg PO BEDTIME magnesium oxide 400 mg magnesium tablet 400 mg PO BID calcium carbonate-vitamin D3 600 mg-10 mcg (400 unit) tablet 1 tab PO DAILY pregabalin 150 mg capsule 150 mg PO BID lisinopril 10 mg tablet 10 mg PO DAILY quetiapine 400 mg tablet 400 mg PO DAILY Discharge Orders: Discharge Order (Routine); Ordered 02/02/25 Ordered By: Lexi Deleon Activity: increase activity as tolerated Diet: advance to your usual diet Interventions: Discharge Assessment Last Done: 02/02/25 10:09 MED/SURG & ICU Observation Charge Sheet Last Done: 02/02/25 10:11 Patient Instructions: Pneumonia (DC) Activity Restrictions/Additional Instructions: patient declines rehab and states she does not need it now as she does not want to do cocaine anymore and she will not touch methadone and admits she has a child that uses that and was shocked by the fact that this could cause her itching and sores on her body. follow up Dr Bhatti her PCP in the next 2-5 days to ensure medications at home are continuing to improve her breathing continue oxygen at home prn do not turn above 2 liters and she has Advair and albuterol at home pulmonology referral Forms: Portal/Health Info Access Inst Follow-Ups: Scottie Bridges [Primary Care Provider] - Discharge Date/Time: 02/02/25 10:12
== END 2025-02-02 10:12 | disposition home or self-care (01) ==
LOC: MS 21:40 → ED 21:40 → MS 02-01 02:24
PROVIDERS: ADMIT Nurse Practitioner Family; ATTEND Family Medicine
DX: Z79.51 Long term (current) use of inhaled steroids; F14.10 Cocaine abuse, uncomplicated; R09.02 Hypoxemia; F17.200 Nicotine dependence, unspecified, uncomplicated; E86.0 Dehydration; J18.9 Pneumonia, unspecified organism; J44.0 Chronic obstructive pulmonary disease with (acute) lower respiratory infection; N17.9 Acute kidney failure, unspecified; Z79.1 Long term (current) use of non-steroidal anti-inflammatories (NSAID); M62.81 Muscle weakness (generalized); J43.9 Emphysema, unspecified; Z71.6 Tobacco abuse counseling; Z95.5 Presence of coronary angioplasty implant and graft; Z79.899 Other long term (current) drug therapy; J44.1 Chronic obstructive pulmonary disease with (acute) exacerbation; Z71.51 Drug abuse counseling and surveillance of drug abuser